=== PATIENT | male | born 1985 | race African-American/Black ===

== ENCOUNTER 2019-05-06 18:19 | Emergency (ER) | payer OTHER ==
[~2019-05-06] VITALS: Ht 180.3 cm; Wt 79.5 kg
[~2019-05-06 18:19] MED LIST: CELE20TA PO; FLUO10TA30 PO; HYDR50TA70 PO; MIRT15TA3; PROZ20CA11 PO; TRAZ1TAB11 PO; ZOFR4TAB14 PO
[2019-05-06 20:15] LABS: BASO % 0.6 % (0.0-1.0); EOS # 0.2 10^3/uL (0.0-0.5); EOS % 3.5 % (0.0-3.0); HEMATOCRIT 43.8 % (42.0-52.0); LYMPH # 1.7 10^3/uL (1.5-5.0); LYMPH % 31.8 % (24.0-44.0); MEAN CORPUSCULAR HEMOGLOBIN 29.5 pg (27.0-33.0); MEAN CORPUSCULAR HGB CONC 34.2 g/dl (32.0-36.5); MEAN CORPUSCULAR VOLUME 86.1 fl (80.0-96.0); MONO # 0.6 10^3/uL (0.0-0.8); MONO % 10.6 % (0.0-5.0); NEUTROPHILS # 2.9 10^3/uL (1.5-8.5); NEUTROPHILS % 52.9 % (36.0-66.0); PLATELET COUNT, AUTOMATED 267 10^3/uL (150-450); RED BLOOD COUNT 5.09 10^6/uL (4.30-6.10); WHITE BLOOD COUNT 5.4 10^3/uL (4.0-10.0)
[2019-05-06 20:42] LABS: ALBUMIN 3.5 GM/DL (3.2-5.2); ALT/SGPT 25 U/L (12-78); BILIRUBIN,DIRECT 0.3 MG/DL (0.0-0.2); BILIRUBIN,TOTAL 1.7 MG/DL (0.2-1.0); BLOOD UREA NITROGEN 18 MG/DL (7-18); CALCIUM LEVEL 8.7 MG/DL (8.5-10.1); CARBON DIOXIDE LEVEL 28 MEQ/L (21-32); CHLORIDE LEVEL 107 MEQ/L (98-107); CREATININE FOR GFR 1.34 MG/DL (0.70-1.30); GLOMERULAR FILTRATION RATE > 60.0 (>60); GLUCOSE, FASTING 92 MG/DL (70-100); LIPASE 185 U/L (73-393); POTASSIUM SERUM 4.2 MEQ/L (3.5-5.1); SODIUM LEVEL 141 MEQ/L (136-145); TOTAL PROTEIN 7.1 GM/DL (6.4-8.2)
[2019-05-06 21:20] LABS: INFLUENZA A AMPLIFICATION NEGATIVE (NEGATIVE); INFLUENZA B AMPLIFICATION NEGATIVE (NEGATIVE)
[2019-05-06] MEDS ORDERED: ONDA4TAB6 PO (21:40)
[2019-05-06] MEDS ORDERED: AUGM875T28 PO (21:40)
[2019-05-06 21:48] VITALS: BP 120/76
== END 2019-05-06 21:49 | disposition home or self-care (01) ==
LOC: M ED 18:19
DX: H66.91 Otitis media, unspecified, right ear (principal)

== ENCOUNTER 2019-08-05 11:12 | Emergency (ER) | payer OTHER ==
[~2019-08-05] VITALS: Ht 180.3 cm; Wt 80.7 kg
[~2019-08-05 11:12] MED LIST changes: +AUGM875T28 PO; +ONDA4TAB6 PO
[2019-08-05 12:24] LABS: BASO % 0.6 % (0.0-1.0); EOS # 0.1 10^3/uL (0.0-0.5); EOS % 3.9 % (0.0-3.0); HEMATOCRIT 42.9 % (42.0-52.0); HEMOGLOBIN 14.8 g/dl (13.5-17.5); LYMPH # 1.4 10^3/uL (1.5-5.0); LYMPH % 42.8 % (24.0-44.0); MEAN CORPUSCULAR HEMOGLOBIN 29.6 pg (27.0-33.0); MEAN CORPUSCULAR HGB CONC 34.5 g/dl (32.0-36.5); MEAN CORPUSCULAR VOLUME 85.8 fl (80.0-96.0); MONO # 0.5 10^3/uL (0.0-0.8); MONO % 13.5 % (0.0-5.0); NEUTROPHILS # 1.3 10^3/uL (1.5-8.5); NEUTROPHILS % 38.9 % (36.0-66.0); PLATELET COUNT, AUTOMATED 279 10^3/uL (150-450); WHITE BLOOD COUNT 3.3 10^3/uL (4.0-10.0)
[2019-08-05 12:50] LABS: APPEARANCE, URINE CLEAR (CLEAR); BACTERIA, URINE AUTO NEGATIVE (NEGATIVE); BILIRUBIN, URINE AUTO NEGATIVE (NEGATIVE); BLOOD, URINE BLOOD NEGATIVE (NEGATIVE); COLOR, URINE YELLOW (YELLOW); GLUCOSE, URINE (UA) AUTO NEGATIVE (NEGATIVE); KETONE, URINE AUTO NEGATIVE (NEGATIVE); LEUKOCYTE ESTERASE, URINE AUTO NEGATIVE (NEGATIVE); NITRITE, URINE AUTO NEGATIVE (NEGATIVE); PROTEIN, URINE AUTO NEGATIVE (NEGATIVE); RBC, URINE AUTO 4 /HPF (0-3); SPECIFIC GRAVITY URINE AUTO 1.012 (1.002-1.035); SQUAMOUS EPITHELIAL CELL UR AU 0 /HPF (0-6); WBC, URINE AUTO 5 /HPF (0-3)
[2019-08-05 12:53] LABS: ALBUMIN 3.7 GM/DL (3.2-5.2); ALT/SGPT 22 U/L (12-78); AMYLASE 137 U/L (25-115); BILIRUBIN,DIRECT 0.4 MG/DL (0.0-0.2); BILIRUBIN,TOTAL 2.2 MG/DL (0.2-1.0); BLOOD UREA NITROGEN 10 MG/DL (7-18); CARBON DIOXIDE LEVEL 30 MEQ/L (21-32); CHLORIDE LEVEL 109 MEQ/L (98-107); GLOMERULAR FILTRATION RATE > 60.0 (>60); GLUCOSE, FASTING 108 MG/DL (70-100); LIPASE 215 U/L (73-393); POTASSIUM SERUM 4.3 MEQ/L (3.5-5.1); SODIUM LEVEL 143 MEQ/L (136-145); TOTAL PROTEIN 7.2 GM/DL (6.4-8.2)
[2019-08-05 14:17] LABS: CPK CREATINE PHOSPHOKINASE 344 U/L (39-308)
[2019-08-05] MEDS ORDERED: NS 1,000 ML IV ONE (15:45)
[2019-08-05] MEDS ORDERED: ONDANSETRON 4MG/2ML VIAL (J2405) IV ONE (15:45)
[2019-08-05] MEDS ORDERED: ISOVUE-370 76% 100ML VIAL (Q9967) As Ordered ONE (15:49)
--- NOTE | 2019-08-05 16:45 | REP ---
CT abdomen and pelvis without IV and with IV contrast, without oral contrast: History: Generalized abdomen pain. Elevated bilirubin. No comparison imaging. CT contrast dose: 100 mL of intravenous Isovue 370. CT findings: Preliminary digital tile grader radiograph demonstrates a normal bowel gas pattern. Axial images demonstrate that the lung bases are clear. The liver and the spleen are normal in size and homogeneous in texture. No adrenal lesion is seen on either side. A small unremarkable gallbladder is seen. No abnormality is noted within the pancreas. There is no evidence of intrarenal calculus or hydronephrosis affecting either kidney. The kidneys enhance symmetrically and appear morphologically intact on pre and postcontrast images. No retroperitoneal mass or adenopathy is observed. Seminal vesicles, prostate, and urinary bladder are unremarkable. No pelvic mass or adenopathy is seen. There is moderate stool in the distal colon. No small or large bowel pathologic dilation is seen. A normal appendix is seen just to the right of midline in the central abdomen. No bony destructive lesion is appreciated. Impression: Negative CT study of the abdomen and pelvis without and with IV contrast. Electronically Signed by Jeffery Argueta MD 08/05/2019 05:12 P
[2019-08-05 17:18] LABS: ETHYL ALCOHOL (ETHANOL) < 0.003 % (0.000-0.010)
[2019-08-05 18:40] VITALS: BP 110/70
== END 2019-08-05 18:47 | disposition home or self-care (01) ==
LOC: M ED 11:12
DX: R79.89 Other specified abnormal findings of blood chemistry (principal); R11.2 Nausea with vomiting, unspecified; R10.9 Unspecified abdominal pain; F17.210 Nicotine dependence, cigarettes, uncomplicated
CPT/HCPCS: 74178; 80048; 80076; 81001; 82150; 82550; 83690; 85025; 96361; 96374; 99284; G0480; J2405; Q9967

== ENCOUNTER 2019-12-17 06:02 | Emergency (ER) | payer OTHER ==
[2019-12-17] MEDS ORDERED: SERT25TA21 (06:13)
[2019-12-17] MEDS ORDERED: PRAZ1CAP (06:13)
[2019-12-17] MEDS ORDERED: NORC1TAB7 PO (07:13)
[2019-12-17] MEDS ORDERED: NORCO, ANEXSIA 5/325MG TABLET (HYDROcodone/ACETAMINOPHEN) PO ONE (07:15)
[2019-12-17 07:20] VITALS: BP 126/89
--- NOTE | 2019-12-17 08:30 | REP ---
REASON: Shoulder pain. No history of recent trauma given. COMPARISON: No priors. FINDINGS: Three views of the left shoulder were performed. The acromioclavicular and glenohumeral relationships are within normal limits. There is no acute fracture or destructive osseous lesions. Electronically Signed by Lico Byrnes DO 12/17/2019 11:17 A
== END 2019-12-17 07:20 | disposition home or self-care (01) ==
LOC: M ED 06:02
DX: M24.412 Recurrent dislocation, left shoulder (principal); Z79.899 Other long term (current) drug therapy; Z72.0 Tobacco use